=== PATIENT | female | born 1985 | race Caucasian/White ===

== ENCOUNTER → 2016-10-18 | Outpatient (CLI) | payer MEDICAID ==
[~2016-10-18] MED LIST: BACITRACIN--O.0.9 GM TP; CLARITIN DPS10 MG PO; COLACE-DPS100 MG PO; MOTRIN-DPS800 MG PO; NIPPLECREAM TP; PERCOCET 5-3251 EACH PO; PHENTERMINE H37.5 MG PO; PRENATAL VIT1 TAB PO; PRILOSEC DPS20 MG PO; TYLENOL #3 DPS1 TAB PO; TYLENOL DPS325 MG PO; ULTRAM DPS50 MG PO; VALIUM-DPS5 MG PO
== END | disposition home or self-care (01) ==
LOC: RAD.S 09-29 12:45
DX: M79.602 Pain in left arm (principal); M79.601 Pain in right arm; R20.2 Paresthesia of skin; M50.821 Other cervical disc disorders at C4-C5 level; M50.822 Other cervical disc disorders at C5-C6 level; Z98.890 Other specified postprocedural states

== ENCOUNTER → 2016-10-19 | Outpatient (CLI) | payer MEDICAID | END | disposition home or self-care (01) | LOC: RAD.S 12:16 | DX: M51.16 Intervertebral disc disorders with radiculopathy, lumbar region (principal); M47.816 Spondylosis without myelopathy or radiculopathy, lumbar region; M43.10 Spondylolisthesis, site unspecified; R20.0 Anesthesia of skin; Z98.1 Arthrodesis status ==

== ENCOUNTER 2016-11-22 05:38 | Day surgery (SDC) | payer MEDICAID ==
[~2016-11-22] VITALS: Ht 162.6 cm; Wt 106.7 kg
[~2016-11-22 05:38] MED LIST changes: -BACITRACIN--O.0.9 GM TP; -COLACE-DPS100 MG PO; -PERCOCET 5-3251 EACH PO; -PHENTERMINE H37.5 MG PO; -TYLENOL DPS325 MG PO; -ULTRAM DPS50 MG PO; -VALIUM-DPS5 MG PO
[2016-12-06] MEDS ORDERED: ULTRAM DPS50 MG PO (11:43)
[2016-12-06] MEDS ORDERED: COLACE-DPS100 MG PO (11:44)
[2016-12-06] MEDS ORDERED: PHENTERMINE H37.5 MG PO (11:44)
[2016-12-06] MEDS ORDERED: VALIUM-DPS5 MG PO (11:45)
[2016-12-06] MEDS ORDERED: PERCOCET 5-3251 EACH PO (11:45)
[2016-12-06] MEDS ORDERED: TYLENOL DPS325 MG PO (11:45)
[2016-12-06] MEDS ORDERED: BACITRACIN--O.0.9 GM TP (11:45)
== END 2016-11-22 08:40 | disposition home or self-care (01) ==
LOC: SSS 05:38 → UNDOADMIN 05:38 → WOR 05:38 → SSS 08:40 → EDSTATUS 09:08
DX: T84.498A Other mechanical complication of other internal orthopedic devices, implants and grafts, initial encounter (principal); Z53.8 Procedure and treatment not carried out for other reasons; M50.20 Other cervical disc displacement, unspecified cervical region; M51.16 Intervertebral disc disorders with radiculopathy, lumbar region; M43.17 Spondylolisthesis, lumbosacral region; F41.9 Anxiety disorder, unspecified; G47.00 Insomnia, unspecified; F32.9 Major depressive disorder, single episode, unspecified; Z87.19 Personal history of other diseases of the digestive system; F17.210 Nicotine dependence, cigarettes, uncomplicated; Y83.8 Other surgical procedures as the cause of abnormal reaction of the patient, or of later complication, without mention of misadventure at the time of the procedure; Z98.890 Other specified postprocedural states

== ENCOUNTER 2016-12-01 05:52 | Inpatient (IN) | payer MEDICAID ==
[~2016-12-01] VITALS: Ht 162.6 cm; Wt 110.0 kg
--- NOTE | ~2016-12-01 | DS ---
ADMIT: 12/01/2016 RM/LOC: 525 [facility] MR#: [id number] 2620 [facility] [address] [place] [id number] MISHEL DORADO [address] [place] [address] General Discharge Summary SEX: F AGE: 31 : 1985 ADMISSION DATE: 12/01/2016 DISCHARGE DATE: 12/05/2016 SERVICE: Neurosurgery. REASON FOR ADMISSION: 1. Low back pain with radiculopathy. 2. Numbness. 3. History of lumbar fusion. 4. Internal fixation device mechanical complication. 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 HOSPITAL COURSE: Ms. Dorado tolerated her procedure well. Postoperatively, she was taken to the Med/Surg floor for monitoring and care. She worked with Physical Therapy and Occupational Therapy and tolerated this quite well. Postop day #1, she was awake and alert. She was oriented x4. She was moving all extremities x4 with 5/5 strength. Her dressing was clean, dry, and intact. Her pain was controlled. Her CLAU drain was patent with serosanguineous drainage. Her On-Q was patent. She continued to work with Physical Therapy and Occupational Therapy. Postop day #2, she was awake and alert. She was afebrile and her vital signs were stable. She was moving all extremities x4 with 5/5 strength. Her incision was clean, dry, and intact. Her CLAU drain was patent with just a small amount of serosanguineous drainage; therefore, was discontinued without difficulty. Her On-Q was patent, but she was requesting to have it removed as well. It was removed without difficulty. She continued to work with Physical Therapy and Occupational Therapy. Postop day #3, she was awake, and she was afebrile, her vital signs were stable. She was moving all extremities x4 with 5/5 strength. Her incision was clean, dry, and intact. She was ambulating, urinating, and defecating per her norm and was requesting discharge home. DISCHARGE CONDITION: Good. MEDICATIONS: 1. Colace 100 mg p.o. b.i.d. 2. Bacitracin ointment to incision daily. 3. Percocet 5/325, one to two p.o. q.4 hours p.r.n. 4. Tylenol 650 mg p.o. q.4 hours p.r.n. 5. Valium 5 mg one to two p.o. q.8 hours p.r.n. 6. Tramadol 50 mg b.i.d. 7. Phentermine 37.5 mg daily. 8. Omeprazole 20 mg daily p.r.n. DISCHARGE INSTRUCTIONS: Per Dr. Montesinos: She can have a regular diet. She ADMIT: 12/01/2016 RM/LOC: 525 [facility] MR#: [id number] [address] [place] [id number] [facility] [address] [place] [address] General Discharge Summary SEX: F AGE: 31 : 1985 may shower, she should not take any tub baths, she should pat her incision dry. She should not lift anything greater than 15 pounds. She should not take any NSAIDs. She should not drive until she is seen in clinic. She will call with any questions or concerns including neurological worsening, signs or symptoms of infection, or any other issues. FOLLOWUP: She will follow up in clinic with Dr. Montesinos in 2 weeks. DISPOSITION: She was discharged home. Total hzhr-sw-htae time for the discharge planning and care coordination was 30 minutes. Raisa Castro APRN / Migue Montesinos MD / manas JOB #: [id number] CC: Migue Montesinos MD, Attending Physician James Betancourt MD, Family Physician
--- NOTE | 2016-12-04 12:04 | OR ---
ADMIT: 12/01/2016 RM/LOC: 525 [facility] MR#: [id number] [address] [id number] MISHEL DORADO [address] [place], [place] [address] Operative/Delivery Room Report SEX: F AGE: 31 : 1985 SURGERY DATE: 12/01/2016 SURGEON: Migue Montesinos MD PREOPERATIVE DIAGNOSIS: Prior L5-S1 fusion with pseudoarthrosis and screw fracture. POSTOPERATIVE DIAGNOSIS: Prior L5-S1 fusion with pseudoarthrosis and screw fracture. PROCEDURES: 1. Removal of hardware with replacements of bilateral pedicle screws at L5 and S1. 2. Inspection of fusion. 3. [place] of iliac crest structural autograft with placement in the posterolateral and transforaminal region with morcellated allograft as well. 4. Posterolateral arthrodesis, L5-S1. 5. Intraoperative neuromonitoring with no breach rhythm after a larger screw placement. 6. Physician interpretation of films utilizing fluoroscopy and computed tomographic imaging. [employer]S: None. DESCRIPTION OF PROCEDURE: After gaining informed consent, the patient was taken to the operative theater, placed on general endotracheal anesthesia in supine position and turned prone on a Walter table with all pressure points purposely padded prior to performing the procedure. She was prepped and draped in usual sterile fashion. A time-out was utilized to ascertain the correct site and side of surgery as well as other pertinent patient historical information. Counts were obtained in the beginning and end of the case with no change betwixt the two. Antibiotics were given within 1 hour of incision and redosed as needed. Fluoroscope was brought into the field and the prior incision was then opened. This was then taken down through significant scar tissue to the instrumentation. Once this was delineated, time was taken to dissect the scar tissue off. This case was substantially more difficult than usual secondary to the dense scar tissue as well as the fact that the screws were fractured and required extra time and technique to remove the remaining screw fragments as well as dissection for evaluation of removal of the interbody piece which due to the tenacious nature of the scar tissue was unable to be accessed from a posterior approach. Self-retaining retractors were placed after things were dissected down revealing the instrumentation. The posterior hardware was removed and the screw heads at S1 came out as they had been fractured. At this point, with the screw pieces left in S1 with the remaining screws in L5, the arthrodesis was inspected. I spent significant ADMIT: 12/01/2016 RM/LOC: 525 [facility] MR#: [id number] [address] [id number] MISHEL DORADO [address] [place] [address] Operative/Delivery Room Report SEX: F AGE: 31 : 1985 time dissecting off some of the non-incorporated bone pieces from the prior graft. There were fairly large chunks of bone, but these were not fully incorporated with each other. This was bilateral. It was clear that this was indeed a pseudarthrosis. Once inspection of fusion was completed, attention was turned to removal of the hardware. Utilizing the hardware removal kit, the L5 screws were sequentially removed. These were then tapped to prepare them for a 7.0 x 55 mm screw. The 45 mm screws had been removed from the patient, these were then tapped and vancomycin powder screws were placed down the same trajectory. At this point, attention was turned to removing the screw fragments, these were imbedded in the pedicle and I had to drill down over top of this. This allowed me the opportunity to decorticate between the L5 and S1 level to provide roughened bone edges for the arthrodesis later in the case, I had performed this in the bilateral approach. There was significant scar tissue throughout and I spent extensive time dissecting that off as well. Finally, the reamer tool was then used to clear off around the fractured screw threads, and the locking screw removal tool was brought in and these two screw pieces were backed out. The holes were then tapped for 7.0 screws and was able to sound at multiple points, finally revealing after just becoming bicorticated. Once this was done, pedicle screws were placed. These were vancomycin powder coated screws. At this point, attention was turned to the interbody fusion. I spent significant time dissecting the scar tissue off from the left-sided approach. I was able to dissect down towards the pedicle, but there was significant anterior scarring not only at the disk space area but throughout that. I was not able to manipulate through the scar tissue in a meaningful way that would allow me access to the interbody cage. At this point, I determined that consideration for anterior interbody approach be necessary should we need to address fusion at that area. I also evaluated for placements of iliac crest screws, although was unable to obtain acceptable trajectory imaging because of the patient's body habitus. The [facility] was brought into the field, and a 3-dimensional CAT scan was obtained, this still could not reveal imaging that could be used to definitively align an iliac screw. At this point, the CT scan had showed that both screws were bicortical, but the left screw was a bit proud on the imaging and at this time, that screw was backed out a few threads. Once this was all completed, attention was turned to the iliac crest harvest. An incision was fashioned on the left and taken down to the iliac crest. Osteotome was then used to resect a large fragment as well as core out more material for autograft. So, we had both structural as well as morcellated autograft. The structural piece was split so I could traverse between the two screw heads to provide fusion material over top of the neural foramen. The rest of the allograft and autograft that had been morcellated was prepared and mixed together. Rods and screw caps were then placed and torqued into setting. Any further decortication that was necessary was fashioned including up over the top of the arch of the remaining portion of L5 to allow ADMIT: 12/01/2016 RM/LOC: 525 [facility] MR#: [id number] [address] [id number] MISHEL DORADO [address] [place] [address] Operative/Delivery Room Report SEX: F AGE: 31 : 1985 posterolateral fusion from both medial and lateral to the screw heads. The rest of the bone material was packed into this region. Once this was completed and after everything had been torqued down to appropriate setting, attention was turned to closure. An 0 Ethibond was used in the fascia over top of the iliac crest graft and then simple inverted interrupted 2-0 Vicryl, subcuticular 3-0 Stratafix were used on that incision. Simple interrupted 0 Vicryl was used in the scarred thoracodorsal fascia after daylighting out a CLAU drain and then, simple inverted interrupted 2-0 Vicryl was used in the hypodermic tissue with subcuticular 3-0 Stratafix on the skin and Steri-Strips over that. CLAU drain was sewn in place. Stab incisions were fashioned for the ropivacaine catheters which were passed intramuscularly. Once all this was completed and the wound had been closed, the patient was extubated and taken to postanesthesia care unit moving all 4 extremities. SPECIMEN: Hardware. COMPLICATIONS: None. BLOOD LOSS: 200 mL. Migue Montesinos MD/ manas JOB #: [id number] CC: Migue Montesinos, Attending Physician James Betancourt, Family Physician
[2016-12-06] MEDS ORDERED: ULTRAM DPS50 MG PO (11:43)
[2016-12-06] MEDS ORDERED: PHENTERMINE H37.5 MG PO (11:44)
[2016-12-06] MEDS ORDERED: COLACE-DPS100 MG PO (11:44)
[2016-12-06] MEDS ORDERED: PERCOCET 5-3251 EACH PO (11:45)
[2016-12-06] MEDS ORDERED: BACITRACIN--O.0.9 GM TP (11:45)
[2016-12-06] MEDS ORDERED: VALIUM-DPS5 MG PO (11:45)
[2016-12-06] MEDS ORDERED: TYLENOL DPS325 MG PO (11:45)
== END 2016-12-05 15:30 | disposition home or self-care (01) | DRG 460 ==
LOC: 5MS 05:52 → WOR 05:52 → 5MS 12:04
PROVIDERS: ADMIT Neurological Surgery
PROC: 0SG3071 Fusion of Lumbosacral Joint with Autologous Tissue Substitute, Posterior Approach, Posterior Column, Open Approach (ICD-10-PCS; principal; 2016-12-01)
PROC: 0SP304Z Removal of Internal Fixation Device from Lumbosacral Joint, Open Approach (ICD-10-PCS; principal; 2016-12-01)
DX: T84.418A Breakdown (mechanical) of other internal orthopedic devices, implants and grafts, initial encounter (principal); Z68.41 Body mass index [BMI] 40.0-44.9, adult; M96.0 Pseudarthrosis after fusion or arthrodesis; M50.20 Other cervical disc displacement, unspecified cervical region; M51.16 Intervertebral disc disorders with radiculopathy, lumbar region; E66.01 Morbid (severe) obesity due to excess calories; M43.17 Spondylolisthesis, lumbosacral region; F41.9 Anxiety disorder, unspecified; K21.9 Gastro-esophageal reflux disease without esophagitis; G47.00 Insomnia, unspecified; F32.9 Major depressive disorder, single episode, unspecified; F17.210 Nicotine dependence, cigarettes, uncomplicated

== ENCOUNTER 2016-12-06 15:50 | Emergency (ER) | payer MEDICAID ==
[~2016-12-06 15:50] MED LIST changes: +BACITRACIN--O.0.9 GM TP; +COLACE-DPS100 MG PO; +PERCOCET 5-3251 EACH PO; +PHENTERMINE H37.5 MG PO; +TYLENOL DPS325 MG PO; +ULTRAM DPS50 MG PO; +VALIUM-DPS5 MG PO
--- NOTE | 2016-12-09 18:24 | ER ---
ADMIT: 12/06/2016 RM/LOC: ER [facility] MR#: [id number] 2620 [facility] [address] [place], [place] [address] MISHEL DORADO [address] [place] [address] Emergency Room Report SEX: F AGE: 31 : 1985 DATE: 12/06/2016 Please refer to my T-sheet for complete H and P. HISTORY OF PRESENT ILLNESS: Briefly, the patient is a 31-year-old who came in with 5 other individuals that were in a house that had high carbon monoxide level. There was a car parked in the garage that was running for a couple hours. They originally had light headache, felt dizzy. They had been on oxygen since they called, and since I had them here, we had them stay on it for a while. By the time I get in to see them, their headaches are completely gone, they feel fine. PHYSICAL EXAMINATION: VITAL SIGNS: Stable. HEENT: Grossly normal. LUNGS: Clear. ABDOMEN: Soft. SKIN: No rash. EMERGENCY ROOM COURSE: We kept them on the high-flow oxygen. We finally shut it off at 1650 hours and let them go home. ASSESSMENT: Carbon monoxide exposure. I did not do a level. We did it on one of the family members. No symptoms now. PLAN: May not return to the house until it was cleared. Return if worse or problems. Follow up with Serafin as needed. Lazaro Fernandez MD/ manas JOB #: [id number] CC: Lazaro Fernandez MD, Attending Physician James Betancourt MD, Family Physician
== END 2016-12-06 17:15 | disposition home or self-care (01) ==
LOC: ER 15:50
DX: Z77.29 Contact with and (suspected) exposure to other hazardous substances (principal)

== ENCOUNTER 2016-12-31 21:34 | Emergency (ER) | payer MEDICAID ==
--- NOTE | 2017-01-07 04:48 | ER ---
ADMIT: 12/31/2016 RM/LOC: ER [facility] MR#: [id number] [address] [address] MISHEL DORADO [address] [place] [address] Emergency Room Report SEX: F AGE: 31 : 1985 DATE: 01/10/1970 CHIEF COMPLAINT: Back pain. HISTORY OF PRESENT ILLNESS: This is a 31-year-old female, who presents to the ER with a low back pain. States she had a procedure in which they transplanted some bone from her hip to her low back with screws and sounds like a low back fusion on the 01 of December. She has been seeing Dr. Montesinos regularly since the procedure. States she has been recovering unremarkably. Today, she ran out of her Percocet 5/325. She does have a script from Dr. Montesinos. She can fill tomorrow. Returns today as she is out of her pain medication and her pain is acutely worse. Says this is similar to her previous back pain, primary low back, does not radiate. No fever, chills, constipation, incontinence, difficulty walking, numbness, or weakness. Worse with movement, relieved by remaining still in supine. COURSE IN THE ER: The patient is seen and examined. She is afebrile and nontoxic. She is in no acute distress. She has tenderness to palpation of the low back. Reflexes are brisk bilaterally. Sensation is intact to light touch compared bilaterally in lower extremities. She is able to ambulate in the department tonight with some difficulty secondary to pain. Her incision is healing well. No redness, drainage, or erythema about the wound. She did arrive here today by a private vehicle with several other children. I told her that I would not be able to treat her pain unless she had a safe ride home. I did wait until her mother arrived in the department tonight before administering 1 mg of Dilaudid IM. PLAN: 1. I did refill her Percocet 5/325, 1 to 2 tabs p.o. every 6 hours as needed for pain. 2. She is to follow up with Dr. Montesinos next week. 3. Continue to use symptomatic treatment with ice and heat as needed. Questions sought and answered to the best of my ability and to the patient's satisfaction. Discharged from the department in stable condition. SABINA Reyes / Maurilio Neal MD / janettel JOB #: [id number] CC: Maurilio Neal MD, Attending Physician Migue Montesinos MD, Family Physician Migue Montesinos MD
== END 2016-12-31 23:05 | disposition home or self-care (01) ==
LOC: ER 21:34
DX: M54.5 Low back pain (principal); G89.29 Other chronic pain; Z98.890 Other specified postprocedural states

== ENCOUNTER 2017-01-16 18:32 | Emergency (ER) | payer MEDICAID ==
--- NOTE | 2017-01-20 13:09 | ER ---
ADMIT: 01/16/2017 RM/LOC: ER [facility] MR#: [id number] 2620 [facility] [address] [place] [id number] MISHEL DORADO [address] [place] [address] Emergency Room Report SEX: F AGE: 31 : 1985 DATE: 01/16/2017 CHIEF COMPLAINT: Diarrhea. HISTORY OF PRESENT ILLNESS: A 31-year-old female, who presents with a day's duration of nausea, vomiting, diarrhea, and crampy abdominal pain. States she awoke last night with some crampy abdominal pain. Has had increasing diarrhea throughout the day. She actually uses the restroom multiple times in the ER tonight. Denies any blood in her diarrhea. Has had two or three episodes of vomiting. Describes the abdominal pain is cramping, diffuse, periumbilical pain. Denies any fevers, cough, shortness of breath, constipation, or problems urinating. Is currently on Percocet for chronic low back pain. No drug allergies. COURSE IN THE EMERGENCY ROOM: GENERAL: The patient was seen and examined, afebrile, nontoxic. No acute distress. RESPIRATORY: Clear to auscultation bilaterally. HEART: Regular. ABDOMEN: Soft. She does have some periumbilical tenderness, very mild. No McBurney's point tenderness. SKIN: Warm and dry. EXTREMITIES: Nontender. No pedal edema. Laboratories unremarkable. No white count. Electrolytes within normal limits. Liver kidney function good. Lipase 178. UA, no signs of infection. Urine negative. I did give her a liter of fluids, Zofran 4 mg IV, as well as morphine for pain control. She was given Lomotil 5 mg p.o. as well. States she is feeling much improved. IMPRESSION: 1. Abdominal pain. 2. Nausea, vomiting, and diarrhea. DISPOSITION: The patient was discharged home to increase fluids as tolerated. She has medications for pain and nausea at home. Continue these as prescribed. Return home and rest. Follow up with her primary if she is not improving. Questions sought and answered to the best of my ability and to the patient's satisfaction. Discharged home in stable condition. SABINA Reyes / Sean Galloway MD / manas JOB #: [id number] CC: Dennys Wilkins MD, Attending Physician James Betancourt MD, Family Physician
== END 2017-01-16 21:00 | disposition home or self-care (01) ==
LOC: ER 18:32
DX: R10.33 Periumbilical pain (principal); R19.7 Diarrhea, unspecified; R11.2 Nausea with vomiting, unspecified; F17.200 Nicotine dependence, unspecified, uncomplicated; Z79.899 Other long term (current) drug therapy

== ENCOUNTER 2017-01-31 13:41 | Emergency (ER) | payer MEDICAID ==
--- NOTE | 2017-02-04 08:56 | ER ---
ADMIT: 01/31/2017 RM/LOC: ER [facility] MR#: [id number] 2620 [facility] [address] [place], [place] [address] MISHEL DORADO [address] [place] [address] Emergency Room Report SEX: F AGE: 31 : 1985 DATE: 01/31/2017 ADDENDUM: CHIEF COMPLAINT: Abdominal pain and shortness of breath. HISTORY OF PRESENT ILLNESS: This is a 31-year-old female who is postop back fusion from 01/26. She comes in complaining of abdominal pain, also says she feels very short of breath especially with any kind of exertion. She rates her pain at 6/10. CT of her chest and abdomen were done, there was no PE and no pneumonia. CT of her abdomen appears to be postop changes per the radiologist. There is some free air and a little bit of stranding, but again this appears to be postop. Her white count is 7.5. Her hemoglobin is 11.3, and platelets are 357. Her CMP is normal except for slightly low albumin at 3.1 and glucose of 105. I am discharging her home. She has Percocet for pain. Told to continue that for pain and told her to follow up with Dr. Betancourt or Dr. Montesinos if she develops any fever or worsening abdominal pain. CLINICAL IMPRESSION: Abdominal pain, right and left lower quadrant status post back fusion from 01/26/2017. SABINA Bynum / Lazaro Fernandez MD / janettel JOB #: [id number] CC: Lazaro Fernandez MD, Attending Physician James Betancourt MD, Family Physician
== END 2017-01-31 16:30 | disposition home or self-care (01) ==
LOC: ER 13:41
DX: R10.31 Right lower quadrant pain (principal); R10.32 Left lower quadrant pain; Z98.1 Arthrodesis status; Z98.890 Other specified postprocedural states